=== PATIENT | male | born 1940 | race Caucasian/White ===

== ENCOUNTER 2016-11-22 17:03 | Inpatient (IN) | payer MEDICARE ==
[~2016-11-22] VITALS: Ht 170.2 cm; Wt 81.6 kg
[2016-11-22] MEDS ORDERED: NKM (17:19)
[2016-11-22] MEDS ORDERED: Ampicillin/Sulbactam Sod 3 GM in NS 110 ML IVPB ONE (17:30)
[2016-11-22] MEDS ORDERED: Unasyn 3gm Inj ONE (17:43)
--- NOTE | 2016-11-22 18:18 | Emergency Room Report ---
History of Present Illness General Chief Complaint: Fever Source: Patient, Family Member Present Illness HPI Patient is a 75-year-old male presented after increased fever as well as testicular pain. Patient gradual onset of symptoms were the past few days. Patient having increased left testicular pain and swelling. He denies any recent trauma. He reported urinating normally. Prior history of prostatic hypertrophy. Patient had moderate pain. Associated with temperature of 102. He denied any dysuria or hesitancy with urination Allergies: Coded Allergies: No Known Allergies (Unverified , 11/22/16) Patient History Past Medical History: see triage record Reviewed Nursing Documentation: PMH: Agreed, PSxH: Agreed Nursing Documentation-PMH Hx Hypertension: Yes Review of Systems All Other Systems: negative except mentioned in HPI Physical Exam Vital Signs Date Time Temp Pulse Resp B/P Pulse Ox O2 Delivery O2 Flow Rate FiO2 11/22/16 17:11 101.8 119 20 126/83 95 Room Air Sp02 EP Interpretation: reviewed, normal General Appearance: normal inspection, well appearing, no apparent distress, alert, non-toxic Head: atraumatic ENT: normal ENT inspection, hearing grossly normal, normal voice Neck: normal inspection, full range of motion, supple, no bony tend Respiratory: normal inspection, lungs clear, normal breath sounds, no respiratory distress, no retraction, no wheezing Cardiovascular #1: regular rate, rhythm, no edema Gastrointestinal: normal inspection, normal bowel sounds, non tender, soft, no guarding, no hernia Genitourinary: no CVA tenderness, other - testicular swelling left scrotal skin normal Musculoskeletal: normal inspection, back normal, normal range of motion Neurologic: normal inspection, alert, responsive, speech normal Psychiatric: normal inspection, judgement/insight normal, mood/affect normal Skin: normal inspection, normal color, no rash Medical Decision Making Diagnostic Impression: Primary Impression: Fever Additional Impressions: Epididymo-orchitis, acute Leukocytosis Diverticular disease ER Course Patient presented for testicular pain. Differential diagnosis included was not limited to torsion, epididymitis, orchitis, prostatitis, renal stone, fourniere' s gangrene among others. Because of complexity of patient's case laboratory testing and imaging studies were ordered.CT the head and pelvis read by radiology showed a colonic diverticuli, low attenuation focus in the liver, nodular calcification in the left lower quadrant mesentery. Urinary bladder wall thickening. The patient started on IV antibiotics. Patient was discussed with Dr. Elfego Bansal for inpatient management Labs Test 11/22/16 17:55 11/22/16 19:20 White Blood Count 24.8 K/UL (4.8-10.8) Red Blood Count 5.26 M/UL (4.70-6.10) Hemoglobin 16.9 G/DL (14.2-18.0) Hematocrit 48.2 % (42.0-52.0) Mean Corpuscular Volume 92 FL (80-99) Mean Corpuscular Hemoglobin 32.2 PG (27.0-31.0) Mean Corpuscular Hemoglobin Concent 35.2 G/DL (32.0-36.0) Red Cell Distribution Width 12.4 % (11.6-14.8) Platelet Count 249 K/UL (150-450) Mean Platelet Volume 6.5 FL (6.5-10.1) Neutrophils (%) (Auto) % (45.0-75.0) Lymphocytes (%) (Auto) % (20.0-45.0) Monocytes (%) (Auto) % (1.0-10.0) Eosinophils (%) (Auto) % (0.0-3.0) Basophils (%) (Auto) % (0.0-2.0) Differential Total Cells Counted 100 Neutrophils % (Manual) 90 % (45-75) Lymphocytes % (Manual) 3 % (20-45) Monocytes % (Manual) 6 % (1-10) Eosinophils % (Manual) 0 % (0-3) Basophils % (Manual) 0 % (0-2) Band Neutrophils 1 % (0-8) Platelet Estimate Adequate Platelet Morphology Normal Red Blood Cell Morphology Normal Prothrombin Time 12.3 SEC (9.30-11.50) Prothromb Time International Ratio 1.2 (0.9-1.1) Activated Partial Thromboplast Time 34 SEC (23-33) Sodium Level 133 mEQ/L (135-145) Potassium Level 3.7 mEQ/L (3.4-4.9) Chloride Level 93 mEQ/L (98-107) Carbon Dioxide Level 20 mEQ/L (20-30) Anion Gap 20 (5-15) Blood Urea Nitrogen 14 mg/dL (7-23) Creatinine 0.8 mg/dL (0.7-1.2) Estimat Glomerular Filtration Rate mL/min (>60) Glucose Level 150 mg/dL (74-106) Lactic Acid Level 1.40 mmol/L (0.66-2.22) Calcium Level 9.3 mg/dL (8.6-10.2) Total Bilirubin 0.7 mg/dL (0.0-1.2) Aspartate Amino Transf (AST/SGOT) 23 U/L (5-40) Alanine Aminotransferase (ALT/SGPT) 17 U/L (3-41) Alkaline Phosphatase 94 U/L (40-129) Total Protein 7.0 g/dL (6.6-8.7) Albumin 4.2 g/dL (3.5-5.2) Globulin 2.8 g/dL Albumin/Globulin Ratio 1.5 (1.0-2.7) Lipase 26 U/L (< 60) Urine Color Pale yellow Urine Appearance Clear Urine pH 6 (4.5-8.0) Urine Specific [place] 1.015 (1.005-1.035) Urine Protein 2+ (NEGATIVE) Urine Glucose (UA) Negative (NEGATIVE) Urine Ketones 4+ (NEGATIVE) Urine Occult Blood 3+ (NEGATIVE) Urine Nitrite Negative (NEGATIVE) Urine Bilirubin Negative (NEGATIVE) Urine Urobilinogen Normal MG/DL (0.0-1.0) Urine Leukocyte Esterase Negative (NEGATIVE) Urine RBC 5-10 /HPF (0 - 0) Urine WBC 0-2 /HPF (0 - 0) Urine Squamous Epithelial Cells None /LPF (NONE/OCC) Urine Bacteria Few /HPF (NONE) Last Vital Signs Date Time Temp Pulse Resp B/P Pulse Ox O2 Delivery O2 Flow Rate FiO2 11/22/16 17:11 101.8 119 20 126/83 95 Room Air Status: unchanged Disposition: ADMITTED INPATIENT Condition: Blaise Rebollar November 22, 2016 18:18
[2016-11-22 18:42] LABS: MEAN CORPUSCULAR HEMOGLOBIN 32.2 PG (27.0-31.0); MEAN CORPUSCULAR HGB CONC 35.2 G/DL (32.0-36.0); MEAN CORPUSCULAR VOLUME 92 FL (80-99); MEAN PLATELET VOLUME 6.5 FL (6.5-10.1); PLATELET COUNT 249 K/UL (150-450); RED BLOOD COUNT 5.26 M/UL (4.70-6.10); RED CELL DISTRIBUTION WIDTH 12.4 % (11.6-14.8)
[2016-11-22 18:46] LABS: INR 1.2 (0.9-1.1); PROTHROMBIN TIME 12.3 SEC (9.30-11.50)
[2016-11-22 18:49] LABS: WHITE BLOOD COUNT 24.8 K/UL (4.8-10.8)
[2016-11-22 19:00] LABS: ALANINE AMINOTRANSFERASE 17 U/L (3-41); ALBUMIN/GLOBULIN RATIO 1.5 (1.0-2.7); ANION GAP 20 (5-15); ASPARTATE AMINO TRANSFERASE 23 U/L (5-40); CALCIUM 9.3 mg/dL (8.6-10.2); CARBON DIOXIDE 20 mEQ/L (20-30); CHLORIDE 93 mEQ/L (98-107); CREATININE 0.8 mg/dL (0.7-1.2); HEMOLYSIS 21; LIPASE 26 U/L (< 60); POTASSIUM 3.7 mEQ/L (3.4-4.9); SODIUM 133 mEQ/L (135-145)
[2016-11-22 19:37] LABS: APPEARANCE,URINE CLEAR; KETONES,URINE 4+ (NEGATIVE); LEUKOCYTE ESTERASE ,URINE NEGATIVE (NEGATIVE); NITRITE,URINE NEGATIVE (NEGATIVE); PH,URINE 6 (4.5-8.0); PROTEIN,URINE 2+ (NEGATIVE); UROBILINOGEN,URINE NORMAL MG/DL (0.0-1.0)
[2016-11-22 19:46] LABS: BACTERIA,URINE FEW /HPF; WBC,URINE 0-2 /HPF (0 - 0)
[2016-11-22] MEDS ORDERED: TAMSULOSIN HCL0.4 MG ORAL (20:46)
[2016-11-22 21:01] VITALS: BP 116/66
[2016-11-22] MEDS ORDERED: Miralax 17gm pkt ORAL PRN (21:45)
[2016-11-22] MEDS ORDERED: DuoNeb 0.5-3(2.5)mg/3ml neb HHN PRN (21:45)
[2016-11-22] MEDS ORDERED: Nitroglycerin Subl 0.4mg tab (Bottle Of 25) SL PRN (21:45)
[2016-11-22 21:46] LABS: BAND NEUTROPHILS % (MANUAL) 1 % (0-8); LYMPHOCYTES % (MANUAL) 3 % (20-45); NEUTROPHILS % (MANUAL) 90 % (45-75); TOTAL CELLS COUNTED 100
[2016-11-22 21:47] LABS: BASOPHILS % (MANUAL) 0 % (0-2); EOSINOPHILS % (MANUAL) 0 % (0-3); PLATELET ESTIMATE ADEQUATE; PLATELET MORPHOLOGY NORMAL
[2016-11-23] VITALS (7 sets, daily range): BP systolic 115–129; BP diastolic 63–74
[2016-11-23] MEDS ORDERED: Vancomycin 1 GM in D5W 275 ML IVPB SCH (01:00)
[2016-11-23 06:47] LABS: MEAN CORPUSCULAR HEMOGLOBIN 29.7 PG (27.0-31.0); MEAN CORPUSCULAR HGB CONC 33.1 G/DL (32.0-36.0); MEAN CORPUSCULAR VOLUME 90 FL (80-99); MEAN PLATELET VOLUME 6.4 FL (6.5-10.1); PLATELET COUNT 224 K/UL (150-450); RED BLOOD COUNT 4.94 M/UL (4.70-6.10); RED CELL DISTRIBUTION WIDTH 12.8 % (11.6-14.8); WHITE BLOOD COUNT 21.1 K/UL (4.8-10.8)
[2016-11-23 07:15] LABS: ALANINE AMINOTRANSFERASE 13 U/L (3-41); ANION GAP 18 (5-15); ASPARTATE AMINO TRANSFERASE 18 U/L (5-40); CALCIUM 9.1 mg/dL (8.6-10.2); CARBON DIOXIDE 23 mEQ/L (20-30); CHLORIDE 96 mEQ/L (98-107); CREATININE 0.8 mg/dL (0.7-1.2); POTASSIUM 3.8 mEQ/L (3.4-4.9); SODIUM 137 mEQ/L (135-145); TOTAL PROTEIN 6.7 g/dL (6.6-8.7)
[2016-11-23 07:16] LABS: HEMOLYSIS 2
[2016-11-23] MEDS: Heparin 5000 units/ml inj SUBQ SCH ×2 (08:49→21:16)
[2016-11-23] MEDS ORDERED: Cefepime HCl 2 GM in D5W 110 ML IV SCH (09:00)
[2016-11-23] MEDS: Morphine Sulfate 2mg/ml Inj IVP PRN ×3 (09:05→17:40)
--- NOTE | 2016-11-23 09:55 | Diagnostic Imaging Report ---
Indication: Abdominal pain Technique: Continuous helical transaxial imaging of the abdomen and pelvis was obtained from the lung bases to the pubic symphysis during intravenous contrast administration. Coronal 2-D reformats were also obtained. Study obtained in a Siemens sensation [address] Total Dose length Product (DLP): [address] Dose Index Volume (CTDIvol): 18, 20 mGy Comparison: None Findings: The lung bases are clear. No abnormalities of the liver, pancreas or spleen are identified. There is no hydronephrosis. Moderate arterial vascular calcifications are present. Gallbladder is unremarkable. Is there is no ascites. Diverticula noted in the colon. Mesenteric dense focus of calcification measuring 1 cm noted anteriorly in the left lower quadrant of the abdomen. Appendix is normal. Prostate is enlarged measuring 8 x 6 x 5.6 cm. No free fluid or free air identified. There is prominence of the scrotal wall which appears thickened. In addition there is serpiginous somewhat enhancing focus of bowel the left testis. This may be a varicocele, but CT is not adequate for evaluation of scrotal pathology. Ultrasound may be obtained for further evaluation as warranted clinically. Impression: Abnormal scrotum. Consider ultrasound for further evaluation. Diverticulosis of the colon. No evidence of diverticulitis. Prostate hypertrophy Atherosclerotic vascular disease The CT scanner at [facility] is accredited by the [employer] and the scans are performed using protocols designed to limit radiation exposure to as low as reasonably achievable to attain images of sufficient resolution adequate for diagnostic evaluation.
[2016-11-23 10:31] LABS: BAND NEUTROPHILS % (MANUAL) 0 % (0-8); BASOPHILS % (MANUAL) 0 % (0-2); EOSINOPHILS % (MANUAL) 0 % (0-3); LYMPHOCYTES % (MANUAL) 3 % (20-45); NEUTROPHILS % (MANUAL) 92 % (45-75); PLATELET ESTIMATE ADEQUATE; PLATELET MORPHOLOGY NORMAL; TOTAL CELLS COUNTED 100
--- NOTE | 2016-11-23 11:20 | Infectious Diseases Prog Note ---
Assessment/Plan Problems: (1) Epididymo-orchitis, acute Assessment & Plan: will start unasyn and doxycycline empiric treatment, send urine culture, and GC&CHLA screening, recommend urology consult (2) Fever Assessment & Plan: due to the above, will send blood and urine culture, continue wide spectrum antibiotics (3) Leukocytosis Assessment & Plan: rule out sepsis . on wide spectrum antibiotics, will send blood culture (4) Testicular discomfort Assessment & Plan: rule out torsion, recommend US and immediate urology evaluation Subjective Allergies: Coded Allergies: No Known Allergies (Unverified , 11/22/16) Objective Vital Signs Last 24 Hour Vital Signs Date Time Temp Pulse Resp B/P Pulse Ox O2 Delivery O2 Flow Rate FiO2 11/23/16 08:00 98.4 90 20 129/63 94 Room Air 11/23/16 04:00 98.2 95 20 115/68 95 Room Air 11/23/16 00:00 96.8 76 18 115/73 94 Room Air 11/22/16 21:47 99.6 72 18 116/66 96 Room Air 11/22/16 21:01 99.6 72 18 116/66 96 Room Air 11/22/16 19:15 99.9 11/22/16 17:11 101.8 119 20 126/83 95 Room Air Height (Feet): 5 Height (Inches): 7.00 Weight (Pounds): 180 Laboratory Tests Test 11/22/16 17:55 11/22/16 19:20 11/23/16 05:55 White Blood Count 24.8 K/UL (4.8-10.8) *H 21.1 K/UL (4.8-10.8) H Red Blood Count 5.26 M/UL (4.70-6.10) 4.94 M/UL (4.70-6.10) Hemoglobin 16.9 G/DL (14.2-18.0) 14.7 G/DL (14.2-18.0) Hematocrit 48.2 % (42.0-52.0) 44.3 % (42.0-52.0) Mean Corpuscular Volume 92 FL (80-99) 90 FL (80-99) Mean Corpuscular Hemoglobin 32.2 PG (27.0-31.0) H 29.7 PG (27.0-31.0) Mean Corpuscular Hemoglobin Concent 35.2 G/DL (32.0-36.0) 33.1 G/DL (32.0-36.0) Red Cell Distribution Width 12.4 % (11.6-14.8) 12.8 % (11.6-14.8) Platelet Count 249 K/UL (150-450) 224 K/UL (150-450) Mean Platelet Volume 6.5 FL (6.5-10.1) 6.4 FL (6.5-10.1) L Neutrophils (%) (Auto) % (45.0-75.0) % (45.0-75.0) Lymphocytes (%) (Auto) % (20.0-45.0) % (20.0-45.0) Monocytes (%) (Auto) % (1.0-10.0) % (1.0-10.0) Eosinophils (%) (Auto) % (0.0-3.0) % (0.0-3.0) Basophils (%) (Auto) % (0.0-2.0) % (0.0-2.0) Differential Total Cells Counted 100 100 Neutrophils % (Manual) 90 % (45-75) H 92 % (45-75) H Lymphocytes % (Manual) 3 % (20-45) L 3 % (20-45) L Monocytes % (Manual) 6 % (1-10) 5 % (1-10) Eosinophils % (Manual) 0 % (0-3) 0 % (0-3) Basophils % (Manual) 0 % (0-2) 0 % (0-2) Band Neutrophils 1 % (0-8) 0 % (0-8) Platelet Estimate Adequate Adequate Platelet Morphology Normal Normal Red Blood Cell Morphology Normal Normal Prothrombin Time 12.3 SEC (9.30-11.50) H Prothromb Time International Ratio 1.2 (0.9-1.1) H Activated Partial Thromboplast Time 34 SEC (23-33) H Sodium Level 133 mEQ/L (135-145) L 137 mEQ/L (135-145) Potassium Level 3.7 mEQ/L (3.4-4.9) 3.8 mEQ/L (3.4-4.9) Chloride Level 93 mEQ/L (98-107) L 96 mEQ/L (98-107) L Carbon Dioxide Level 20 mEQ/L (20-30) 23 mEQ/L (20-30) Anion Gap 20 (5-15) H 18 (5-15) H Blood Urea Nitrogen 14 mg/dL (7-23) 15 mg/dL (7-23) Creatinine 0.8 mg/dL (0.7-1.2) 0.8 mg/dL (0.7-1.2) Estimat Glomerular Filtration Rate mL/min (>60) mL/min (>60) Glucose Level 150 mg/dL (74-106) H 143 mg/dL (74-106) H Lactic Acid Level 1.40 mmol/L (0.66-2.22) Calcium Level 9.3 mg/dL (8.6-10.2) 9.1 mg/dL (8.6-10.2) Total Bilirubin 0.7 mg/dL (0.0-1.2) 0.5 mg/dL (0.0-1.2) Aspartate Amino Transf (AST/SGOT) 23 U/L (5-40) 18 U/L (5-40) Alanine Aminotransferase (ALT/SGPT) 17 U/L (3-41) 13 U/L (3-41) Alkaline Phosphatase 94 U/L (40-129) 84 U/L (40-129) Total Protein 7.0 g/dL (6.6-8.7) 6.7 g/dL (6.6-8.7) Albumin 4.2 g/dL (3.5-5.2) 3.4 g/dL (3.5-5.2) L Globulin 2.8 g/dL 3.3 g/dL Albumin/Globulin Ratio 1.5 (1.0-2.7) 1.0 (1.0-2.7) Lipase 26 U/L (< 60) Urine Color Pale yellow Urine Appearance Clear Urine pH 6 (4.5-8.0) Urine Specific [place] 1.015 (1.005-1.035) Urine Protein 2+ (NEGATIVE) H Urine Glucose (UA) Negative (NEGATIVE) Urine Ketones 4+ (NEGATIVE) H Urine Occult Blood 3+ (NEGATIVE) H Urine Nitrite Negative (NEGATIVE) Urine Bilirubin Negative (NEGATIVE) Urine Urobilinogen Normal MG/DL (0.0-1.0) Urine Leukocyte Esterase Negative (NEGATIVE) Urine RBC 5-10 /HPF (0 - 0) H Urine WBC 0-2 /HPF (0 - 0) Urine Squamous Epithelial Cells None /LPF (NONE/OCC) Urine Bacteria Few /HPF (NONE) Current Medications Medications (Trade) Dose Ordered Sig/Alivia Route PRN Reason Start Time Stop Time Status Last Admin Dose Admin Acetaminophen (Tylenol) 650 mg Q4H PRN ORAL fever 11/22/16 21:45 12/22/16 21:44 Albuterol/ Ipratropium 3 ml 3 ml EVERY 4 HOURS PRN HHN Shortness of Breath 11/22/16 21:45 11/27/16 21:44 Cefepime HCl 2 gm/ Dextrose 110 ml @ 220 mls/hr EVERY 12 HOURS IV 11/23/16 09:00 11/30/16 08:59 11/23/16 08:49 Heparin Sodium (Porcine) (Heparin 5000 units/ml) 5,000 units EVERY 12 HOURS SUBQ 11/23/16 09:00 12/23/16 08:59 11/23/16 08:49 Morphine Sulfate (Morphine Sulfate) 2 mg EVERY 4 HOURS PRN IVP Moderate Pain (Pain Scale 4-6) 11/22/16 21:45 11/29/16 21:44 11/23/16 09:05 Nitroglycerin (Ntg) 0.4 mg Q5MINS PRN SL Prn Chest Pain 11/22/16 21:45 12/22/16 21:44 Ondansetron HCl (Zofran) 4 mg Q6H PRN IVP Nausea & Vomiting 11/22/16 21:45 12/22/16 21:44 Polyethylene Glycol (Miralax) 17 gm DAILYPRN PRN ORAL Constipation 11/22/16 21:45 12/22/16 21:44 Tamsulosin HCl (Flomax) 0.4 mg BEDTIME ORAL 11/23/16 21:00 12/23/16 20:59 Temazepam (Restoril) 15 mg HSPRN PRN ORAL Insomnia 11/22/16 21:45 11/29/16 21:44 Vancomycin HCl/ Dextrose (Vancomycin/D5W) 275 ml @ 183.3 mls/ hr Q24H IVPB 11/23/16 01:00 11/28/16 00:59 11/23/16 00:29 Jennifer Herr M.D. November 23, 2016 11:20
--- NOTE | 2016-11-23 12:12 | Diagnostic Imaging Report ---
Indication: Dyspnea Comparison: None A single view chest radiograph was obtained. Findings: Cardiomediastinal appearance is within normal limits for age. Pulmonary vascularity is appropriate. The diaphragmatic contour is smooth and costophrenic angles are sharp. No pleural effusions are identified. The bones are osteopenic. Impression: No acute findings
[2016-11-23] MEDS: Ampicillin/Sulbactam Sod 3 GM in NS 110 ML IVPB SCH ×3 (14:15→23:47)
[2016-11-23] MEDS: Doxycycline Hyclate 100 MG in D5W 110 ML IV SCH (15:06)
[2016-11-23] MEDS ORDERED: NS 275ml ONE (16:09)
[2016-11-23] MEDS ORDERED: Tubing IV Secondary IV ONE (16:09)
--- NOTE | 2016-11-23 20:38 | History and Physical Report ---
DATE OF ADMISSION: 11/22/2016 TIME: 8 a.m. CONSULTANTS: 1. Jennifer Herr M.D. 2. Ian Panchal M.D. 3. Michael Mallory M.D. CHIEF COMPLAINT: Fever, sepsis, testicular pain, and orchitis. HISTORY OF PRESENT ILLNESS: This is a 75-year-old male who lives at home and presents with a three-day increase of testicular swelling and pain, diagnosed with orchitis and testicular pain, fever, and sepsis, admitted to medical floor for treatment. Currently calm, in bed. No complaint. No chest pain or shortness of breath. No nausea, vomiting, or diarrhea. PAST MEDICAL HISTORY: Nothing. PAST SURGICAL HISTORY: Nothing. MEDICATIONS: 1. Flomax. 2. Cefepime. 3. Heparin. 4. Vancomycin. 5. DuoNeb. 6. Tylenol. 7. Morphine. 8. MiraLax. 9. Zofran. 10. Restoril. 11. Nitroglycerin. ALLERGIES: None. SOCIAL HISTORY: No smoking. No alcohol. No intravenous drug abuse. FAMILY HISTORY: Noncontributory. PHYSICAL EXAMINATION: General: Calm in bed. Oriented x3, in no acute distress. VITAL SIGNS: Temperature 98, pulse 95, respiratory rate 24, and blood pressure 115/68. CARDIOVASCULAR: No murmur. LUNGS: Distant and clear. ABDOMEN: Positive bowel sounds. Nontender. Nondistended. EXTREMITIES: No cyanosis, clubbing, or edema. Scrotal swelling, slightly tender. No redness. No increased warmth. NEUROLOGIC: The patient moves all extremities, slightly weak left hand. LABORATORY DATA: White count 21, hemoglobin and hematocrit 14 and 44, and platelets 224,000. BMP shows chloride of 96. Glucose 143, otherwise normal. INR is 1.2. PTT is 34. Urinalysis showed 3+ occult blood, 4+ ketones, and 2+ protein, otherwise normal. ASSESSMENT: 1. Fever. 2. Sepsis. 3. Testicular cancer. 4. Orchitis . 5. Possible diabetes. PLAN: 1. Continue premedications. 2. Pain control. 3. Blood sugar control. 4. Diet . 5. Antibiotics per Infectious Diseases. 6. CBC and BMP in the morning. 7. Continue to follow up this patient medically. 8. Dr. Mallory, Dr. Herr, and Dr. Panchal to consult. Elfego Bansal D.O. DR: ORA JOB#: [id number] CC:
[2016-11-23] MEDS: Tamsulosin 0.4mg cap ORAL SCH (21:16)
--- NOTE | 2016-11-23 22:55 | Consultation ---
History of Present Illness General Chief Complaint: Fever Present Illness Allergies: Coded Allergies: No Known Allergies (Unverified , 11/22/16) Medication History Scheduled Tamsulosin Hcl (Tamsulosin Hcl*), 0.4 MG ORAL BEDTIME, (Reported) Patient History Healthcare decision maker Resuscitation status Full Code Advanced Directive on File No Physical Exam Last 24 Hour Vital Signs Date Time Temp Pulse Resp B/P Pulse Ox O2 Delivery O2 Flow Rate FiO2 11/23/16 19:54 98.6 93 20 120/71 93 Room Air 11/23/16 16:09 100.0 97 18 117/74 92 Room Air 11/23/16 12:00 98.1 90 20 119/68 95 Room Air 11/23/16 08:00 98.4 90 20 129/63 94 Room Air 11/23/16 04:00 98.2 95 20 115/68 95 Room Air 11/23/16 00:00 96.8 76 18 115/73 94 Room Air Intake and Output 11/22/16 11/23/16 19:00 07:00 Intake Total 835.0 ml Balance 835.0 ml Intake Oral 560 ml IV Total 275.0 ml # Voids 2 # Bowel Movements 6 Laboratory Tests Test 11/23/16 05:55 11/23/16 16:00 White Blood Count 21.1 K/UL (4.8-10.8) H Red Blood Count 4.94 M/UL (4.70-6.10) Hemoglobin 14.7 G/DL (14.2-18.0) Hematocrit 44.3 % (42.0-52.0) Mean Corpuscular Volume 90 FL (80-99) Mean Corpuscular Hemoglobin 29.7 PG (27.0-31.0) Mean Corpuscular Hemoglobin Concent 33.1 G/DL (32.0-36.0) Red Cell Distribution Width 12.8 % (11.6-14.8) Platelet Count 224 K/UL (150-450) Mean Platelet Volume 6.4 FL (6.5-10.1) L Neutrophils (%) (Auto) % (45.0-75.0) Lymphocytes (%) (Auto) % (20.0-45.0) Monocytes (%) (Auto) % (1.0-10.0) Eosinophils (%) (Auto) % (0.0-3.0) Basophils (%) (Auto) % (0.0-2.0) Differential Total Cells Counted 100 Neutrophils % (Manual) 92 % (45-75) H Lymphocytes % (Manual) 3 % (20-45) L Monocytes % (Manual) 5 % (1-10) Eosinophils % (Manual) 0 % (0-3) Basophils % (Manual) 0 % (0-2) Band Neutrophils 0 % (0-8) Platelet Estimate Adequate Platelet Morphology Normal Red Blood Cell Morphology Normal Sodium Level 137 mEQ/L (135-145) Potassium Level 3.8 mEQ/L (3.4-4.9) Chloride Level 96 mEQ/L (98-107) L Carbon Dioxide Level 23 mEQ/L (20-30) Anion Gap 18 (5-15) H Blood Urea Nitrogen 15 mg/dL (7-23) Creatinine 0.8 mg/dL (0.7-1.2) Estimat Glomerular Filtration Rate mL/min (>60) Glucose Level 143 mg/dL (74-106) H Calcium Level 9.1 mg/dL (8.6-10.2) Total Bilirubin 0.5 mg/dL (0.0-1.2) Aspartate Amino Transf (AST/SGOT) 18 U/L (5-40) Alanine Aminotransferase (ALT/SGPT) 13 U/L (3-41) Alkaline Phosphatase 84 U/L (40-129) Total Protein 6.7 g/dL (6.6-8.7) Albumin 3.4 g/dL (3.5-5.2) L Globulin 3.3 g/dL Albumin/Globulin Ratio 1.0 (1.0-2.7) Chlamydia trachomatis RNA Pending Height (Feet): 5 Height (Inches): 7.00 Weight (Pounds): 180 Medications Current Medications Medications (Trade) Dose Ordered Sig/Alivia Route PRN Reason Start Time Stop Time Status Last Admin Dose Admin Acetaminophen (Tylenol) 650 mg Q4H PRN ORAL fever 11/22/16 21:45 12/22/16 21:44 11/23/16 17:43 Albuterol/ Ipratropium (DuoNeb 0.5-3(2.5)mg/3ml) 3 ml EVERY 4 HOURS PRN HHN Shortness of Breath 11/22/16 21:45 11/27/16 21:44 Ampicillin Sodium/ Sulbactam Sodium 3 gm/Sodium Chloride 110 ml @ 220 mls/hr Q6HR IVPB 11/23/16 12:00 11/30/16 11:59 11/23/16 17:40 Cetylpyridinium Chloride (Cepacol) 1 lozenge Q2H PRN ANA SORE THROAT 11/23/16 15:00 12/23/16 14:59 11/23/16 17:43 Doxycycline Hyclate/Dextrose (Vibramycin/D5W) 110 ml @ 110 mls/hr Q12HR@0000,1200 IV 11/23/16 13:00 11/30/16 12:59 11/23/16 15:06 Heparin Sodium (Porcine) (Heparin 5000 units/ml) 5,000 units EVERY 12 HOURS SUBQ 11/23/16 09:00 12/23/16 08:59 11/23/16 21:16 Morphine Sulfate (Morphine Sulfate) 2 mg EVERY 4 HOURS PRN IVP Moderate Pain (Pain Scale 4-6) 11/22/16 21:45 11/29/16 21:44 11/23/16 17:40 Nitroglycerin 0.4 mg 0.4 mg Q5MINS PRN SL Prn Chest Pain 11/22/16 21:45 12/22/16 21:44 Ondansetron HCl (Zofran) 4 mg Q6H PRN IVP Nausea & Vomiting 11/22/16 21:45 12/22/16 21:44 Polyethylene Glycol (Miralax) 17 gm DAILYPRN PRN ORAL Constipation 11/22/16 21:45 12/22/16 21:44 Tamsulosin HCl (Flomax) 0.4 mg BEDTIME ORAL 11/23/16 21:00 12/23/16 20:59 11/23/16 21:16 Temazepam (Restoril) 15 mg HSPRN PRN ORAL Insomnia 11/22/16 21:45 11/29/16 21:44 KELVIN MEJÍA November 23, 2016 22:55
[2016-11-24] MEDS: Doxycycline Hyclate 100 MG in D5W 110 ML IV SCH ×3 (00:30→23:47)
[2016-11-24 04:37] VITALS: BP 132/76
[2016-11-24] MEDS: Ampicillin/Sulbactam Sod 3 GM in NS 110 ML IVPB SCH ×4 (05:20→23:01)
[2016-11-24 07:56] LABS: MEAN CORPUSCULAR HEMOGLOBIN 29.6 PG (27.0-31.0); MEAN CORPUSCULAR HGB CONC 32.7 G/DL (32.0-36.0); MEAN CORPUSCULAR VOLUME 91 FL (80-99); MEAN PLATELET VOLUME 6.8 FL (6.5-10.1); PLATELET COUNT 232 K/UL (150-450); RED BLOOD COUNT 4.74 M/UL (4.70-6.10); RED CELL DISTRIBUTION WIDTH 12.6 % (11.6-14.8); WHITE BLOOD COUNT 16.4 K/UL (4.8-10.8)
[2016-11-24 08:05] LABS: ANION GAP 13 (5-15); CALCIUM 8.7 mg/dL (8.6-10.2); CARBON DIOXIDE 27 mEQ/L (20-30); CHLORIDE 97 mEQ/L (98-107); CREATININE 0.8 mg/dL (0.7-1.2); HEMOLYSIS 1; POTASSIUM 3.5 mEQ/L (3.4-4.9); SODIUM 137 mEQ/L (135-145)
[2016-11-24 08:11] VITALS: BP 114/73
[2016-11-24] MEDS: Morphine Sulfate 2mg/ml Inj IVP PRN ×2 (09:06→17:37)
[2016-11-24] MEDS: Heparin 5000 units/ml inj SUBQ SCH ×2 (09:10→20:37)
--- NOTE | 2016-11-24 09:35 | Diagnostic Imaging Report ---
Indications: Left-sided scrotal pain and swelling for one day Technique: Trans-scrotal real-time grayscale and duplex Doppler imaging was performed Findings: Comparison: None Right testis 4 x 3.1 x 3 cm. Normal contour and echotexture without focal abnormality. Right epididymis normal in size and echotexture with a 6 mm circumscribed anechoic focus emanating exophytically. Both demonstrate normal blood flow on duplex Doppler imaging. Small amount of adjacent fluid. No varicocele. No significant scrotal wall edema/hyperemia. Left testis 4.3 x 3.3 x 3.4 cm. Normal contour and echotexture with single 10 mm nodular echogenic focus in upper pole. Left epididymis mildly enlarged, contains 12 mm circumscribed anechoic focus.. Both demonstrate reportedly mildly increased blood flow on duplex Doppler imaging. Moderateadjacent fluid. Small varicocele. No significant scrotal wall edema/upper IMPRESSION: Mild enlargement of left testis and epididymis with report by television technician of increased blood flow, suggesting epididymoorchitis. Associated hydrocele. Suggestion of small left varicocele Small right hydrocele, nonspecific Bilateral epididymal cysts
--- NOTE | 2016-11-24 09:59 | Consultation ---
DATE OF CONSULTATION: 11/23/2016 UROLOGY CONSULTATION ATTENDING/CONSULTING PHYSICIAN: Ian Panchal M.D. CHIEF COMPLAINT AND HISTORY OF PRESENT ILLNESS: I was asked by Dr. Panchal to evaluate this very pleasant 75-year-old gentleman regarding a history of left scrotal swelling and pain in the setting of likely infection. Briefly, the patient reports a history of testicular pain and swelling developing two days ago. This is associated with fevers up to 102.0 degrees, who presents to the emergency room where he was noted to have the same. He was admitted and placed on broad-spectrum antibiotics. A CT scan failed to reveal any evidence of torsion, hernia etc. A scrotal ultrasound was done, the result is pending. PAST MEDICAL HISTORY: 1. Hypertension. 2. BPH. MEDICATIONS: Please see chart for current medications administration details. Briefly, the patient is receiving cefepime and Unasyn for antibiotic coverage. ALLERGIES: No known drug allergies. SOCIAL HISTORY: Unremarkable for tobacco, alcohol or drug use. FAMILY HISTORY: Noncontributory. REVIEW OF SYSTEMS: A 12-system review of systems was done at bedside and essentially unremarkable outside was described above. PHYSICAL EXAMINATION: GENERAL: The patient is a older gentleman, awake, alert and oriented x4, pleasant in no obvious distress. HEENT: NC/AT. EOMI. Oropharynx is clear. NECK: Supple. Full range of motion. CHEST: Within normal limits. ABDOMEN: Soft, flat, nontender, and nondistended. EXTREMITIES: Normal perfused. No cyanosis, clubbing or edema. BACK: No CVA tenderness to percussion. NEUROLOGIC: Nonfocal. GENITOURINARY: Reveals a circumcised male phallus. No discharge, lesions or curvature. There are bilateral descended testes and cord structures. The right side is within normal limits. Left side is enlarged and mildly tender consistent with a history of epididymal orchitis. There is no evidence of hydrocele, hernia, testicular tumor, torsion or other abnormality. LABORATORY DATA: White blood cell count 21.1, down from 24.8 on admission, hematocrit 44.3, and platelets 244,000. DIAGNOSTIC IMAGING: CT scan of the abdomen and pelvis reveals prominence of scrotal wall which appears thickened in addition there may be serpiginous and somewhat enhancing focus about a left testicle this may be a varicocele, but CT scan is not adequate for evaluation of pseudo pathology suggest ultrasound for further evaluation. There is prostatic hypertrophy and diverticulosis noted. ASSESSMENT AND PLAN: In summary, the patient is a 75-year-old gentleman with a history of benign prostatic hypertrophy, who presents to the hospital with a 2-day history of left scrotal pain and swelling associated with high-grade fever. Physical exam reveals an enlarged testicle, which is tender, but decreased in sensitivity versus prior exam per the patient. There is no evidence of hydrocele, tumor, hernia torsion or other abnormality. Laboratory data was notable for elevated but decreasing white blood cell count. Diagnostic imaging on CT scan revealed a thickened scrotum and nonspecific findings. Scrotal ultrasound has been done, but the read is pending. The patient appears to be suffering from an episode of epididymal orchitis. He is already improving on intravenous antibiotics. Physical exam did not reveal any evidence of any other pathology. If the ultrasound shows similar findings, we would recommend continue the patient on intravenous or p.o. antibiotics for 14 days total coverage once he is afebrile and his pain is controlled he can be discharged home to complete oral antibiotics. Thank you for allowing me to participate in the care of this nice gentleman. Please do not hesitate to contact me with any questions that you may further have regarding his care. I will be happy to see him with you as needed. Sabino Jenkins M.D. DR: Bonita JOB#: [id number] CC:
[2016-11-24 10:29] LABS: BAND NEUTROPHILS % (MANUAL) 0 % (0-8); BASOPHILS % (MANUAL) 0 % (0-2); EOSINOPHILS % (MANUAL) 0 % (0-3); LYMPHOCYTES % (MANUAL) 11 % (20-45); NEUTROPHILS % (MANUAL) 83 % (45-75); PLATELET ESTIMATE ADEQUATE; PLATELET MORPHOLOGY NORMAL; TOTAL CELLS COUNTED 100
[2016-11-24 11:54] VITALS: BP 106/74
--- NOTE | 2016-11-24 14:19 | General Progress Note ---
Assessment/Plan Problem List: (1) Orchitis ICD Codes: N45.2 - Orchitis SNOMED: 306492074, 120360696 (2) Fever ICD Codes: R50.9 - Fever, unspecified SNOMED: 253694094 (3) Leukocytosis ICD Codes: D72.829 - Elevated white blood cell count, unspecified SNOMED: 153677124, 052125553 (4) Epididymo-orchitis, acute ICD Codes: N45.3 - Epididymo-orchitis SNOMED: 040897123 (5) Testicular discomfort ICD Codes: N50.819 - Testicular pain, unspecified SNOMED: 727188327 Status: stable, progressing, tolerating diet Assessment/Plan pt diet abx pain control uro f/u cbc bmp am Subjective Constitutional: Reports: weakness Allergies: Coded Allergies: No Known Allergies (Unverified , 11/22/16) All Systems: reviewed and negative except above Subjective sl testicular pain Objective Last 24 Hour Vital Signs Date Time Temp Pulse Resp B/P Pulse Ox O2 Delivery O2 Flow Rate FiO2 11/24/16 11:54 97.5 74 18 106/74 97 Room Air 11/24/16 08:11 97.5 80 18 114/73 94 Room Air 11/24/16 04:37 98.1 85 17 132/76 96 Room Air 11/23/16 23:53 97.0 69 16 116/74 Room Air 11/23/16 19:54 98.6 93 20 120/71 93 Room Air 11/23/16 16:09 100.0 97 18 117/74 92 Room Air Intake and Output 11/23/16 11/24/16 19:00 07:00 Intake Total 1160 ml 330 ml Balance 1160 ml 330 ml Intake Oral 720 ml IV Total 440 ml 330 ml # Voids 3 3 # Bowel Movements 1 Laboratory Tests 11/23/16 16:00: Chlamydia trachomatis RNA [Pending] 11/24/16 06:15: White Blood Count 16.4H, Red Blood Count 4.74, Hemoglobin 14.0L, Hematocrit 43.0 , Mean Corpuscular Volume 91, Mean Corpuscular Hemoglobin 29.6, Mean Corpuscular Hemoglobin Concent 32.7, Red Cell Distribution Width 12.6, Platelet Count 232, Mean Platelet Volume 6.8, Neutrophils (%) (Auto) , Lymphocytes (%) ( Auto) , Monocytes (%) (Auto) , Eosinophils (%) (Auto) , Basophils (%) (Auto) , Differential Total Cells Counted 100, Neutrophils % (Manual) 83H, Lymphocytes % (Manual) 11L, Monocytes % (Manual) 6, Eosinophils % (Manual) 0, Basophils % ( Manual) 0, Band Neutrophils 0, Platelet Estimate Adequate, Platelet Morphology Normal, Red Blood Cell Morphology Normal, Sodium Level 137, Potassium Level 3.5 , Chloride Level 97L, Carbon Dioxide Level 27, Anion Gap 13, Blood Urea Nitrogen 14, Creatinine 0.8, Estimat Glomerular Filtration Rate , Glucose Level 114H, Calcium Level 8.7 Height (Feet): 5 Height (Inches): 7.00 Weight (Pounds): 180 General Appearance: alert EENT: normal ENT inspection Neck: normal alignment Cardiovascular: normal peripheral pulses, normal rate, regular rhythm Respiratory/Chest: chest wall non-tender, lungs clear, normal breath sounds Abdomen: normal bowel sounds, non tender, soft Extremities: normal inspection Edema: no edema noted Arm (L), no edema noted Arm (R), no edema noted Leg (L), no edema noted Leg (R), no edema noted Pedal (L), no edema noted Pedal (R), no edema noted Generalized Neurologic: responsive, motor weakness Skin: normal pigmentation, warm/dry Objective testicular swelling 4" by 4" BROOKLYN CHAIDEZ November 24, 2016 14:19
[2016-11-24 15:59] VITALS: BP 113/72
--- NOTE | 2016-11-24 15:59 | Infectious Diseases Prog Note ---
Assessment/Plan Problems: (1) Epididymo-orchitis, acute Assessment & Plan: will start unasyn and doxycycline empiric treatment, send urine culture, and GC&CHLA screening, recommend urology consult (2) Fever Assessment & Plan: due to the above, will send blood and urine culture, continue wide spectrum antibiotics (3) Leukocytosis Assessment & Plan: rule out sepsis . on wide spectrum antibiotics, will send blood culture (4) Testicular discomfort Assessment & Plan: rule out torsion, recommend US and immediate urology evaluation Subjective Allergies: Coded Allergies: No Known Allergies (Unverified , 11/22/16) Objective Vital Signs Last 24 Hour Vital Signs Date Time Temp Pulse Resp B/P Pulse Ox O2 Delivery O2 Flow Rate FiO2 11/24/16 11:54 97.5 74 18 106/74 97 Room Air 11/24/16 08:11 97.5 80 18 114/73 94 Room Air 11/24/16 04:37 98.1 85 17 132/76 96 Room Air 11/23/16 23:53 97.0 69 16 116/74 Room Air 11/23/16 19:54 98.6 93 20 120/71 93 Room Air 11/23/16 16:09 100.0 97 18 117/74 92 Room Air Height (Feet): 5 Height (Inches): 7.00 Weight (Pounds): 180 Microbiology Date/Time Source Procedure Growth Status 11/22/16 17:55 Blood Blood Culture - Preliminary NO GROWTH AFTER 24 HOURS Resulted 11/22/16 17:10 Blood Blood Culture - Preliminary NO GROWTH AFTER 24 HOURS Resulted Laboratory Tests Test 11/23/16 16:00 11/24/16 06:15 Chlamydia trachomatis RNA Pending White Blood Count 16.4 K/UL (4.8-10.8) H Red Blood Count 4.74 M/UL (4.70-6.10) Hemoglobin 14.0 G/DL (14.2-18.0) L Hematocrit 43.0 % (42.0-52.0) Mean Corpuscular Volume 91 FL (80-99) Mean Corpuscular Hemoglobin 29.6 PG (27.0-31.0) Mean Corpuscular Hemoglobin Concent 32.7 G/DL (32.0-36.0) Red Cell Distribution Width 12.6 % (11.6-14.8) Platelet Count 232 K/UL (150-450) Mean Platelet Volume 6.8 FL (6.5-10.1) Neutrophils (%) (Auto) % (45.0-75.0) Lymphocytes (%) (Auto) % (20.0-45.0) Monocytes (%) (Auto) % (1.0-10.0) Eosinophils (%) (Auto) % (0.0-3.0) Basophils (%) (Auto) % (0.0-2.0) Differential Total Cells Counted 100 Neutrophils % (Manual) 83 % (45-75) H Lymphocytes % (Manual) 11 % (20-45) L Monocytes % (Manual) 6 % (1-10) Eosinophils % (Manual) 0 % (0-3) Basophils % (Manual) 0 % (0-2) Band Neutrophils 0 % (0-8) Platelet Estimate Adequate Platelet Morphology Normal Red Blood Cell Morphology Normal Sodium Level 137 mEQ/L (135-145) Potassium Level 3.5 mEQ/L (3.4-4.9) Chloride Level 97 mEQ/L (98-107) L Carbon Dioxide Level 27 mEQ/L (20-30) Anion Gap 13 (5-15) Blood Urea Nitrogen 14 mg/dL (7-23) Creatinine 0.8 mg/dL (0.7-1.2) Estimat Glomerular Filtration Rate mL/min (>60) Glucose Level 114 mg/dL (74-106) H Calcium Level 8.7 mg/dL (8.6-10.2) Current Medications Medications (Trade) Dose Ordered Sig/Alivia Route PRN Reason Start Time Stop Time Status Last Admin Dose Admin Acetaminophen (Tylenol) 650 mg Q4H PRN ORAL fever 11/22/16 21:45 12/22/16 21:44 11/23/16 17:43 Albuterol/ Ipratropium (DuoNeb 0.5-3(2.5)mg/3ml) 3 ml EVERY 4 HOURS PRN HHN Shortness of Breath 11/22/16 21:45 11/27/16 21:44 Ampicillin Sodium/ Sulbactam Sodium 3 gm/Sodium Chloride 110 ml @ 220 mls/hr Q6HR IVPB 11/23/16 12:00 11/30/16 11:59 11/24/16 11:59 Cetylpyridinium Chloride (Cepacol) 1 lozenge Q2H PRN ANA SORE THROAT 11/23/16 15:00 12/23/16 14:59 11/23/16 17:43 Doxycycline Hyclate/Dextrose (Vibramycin/D5W) 110 ml @ 110 mls/hr Q12HR@0000,1200 IV 11/23/16 13:00 11/30/16 12:59 11/24/16 12:45 Heparin Sodium (Porcine) (Heparin 5000 units/ml) 5,000 units EVERY 12 HOURS SUBQ 11/23/16 09:00 12/23/16 08:59 11/24/16 09:10 Morphine Sulfate (Morphine Sulfate) 2 mg EVERY 4 HOURS PRN IVP Moderate Pain (Pain Scale 4-6) 11/22/16 21:45 11/29/16 21:44 11/24/16 09:06 Nitroglycerin 0.4 mg 0.4 mg Q5MINS PRN SL Prn Chest Pain 11/22/16 21:45 12/22/16 21:44 Ondansetron HCl (Zofran) 4 mg Q6H PRN IVP Nausea & Vomiting 11/22/16 21:45 12/22/16 21:44 Polyethylene Glycol (Miralax) 17 gm DAILYPRN PRN ORAL Constipation 11/22/16 21:45 12/22/16 21:44 Tamsulosin HCl (Flomax) 0.4 mg BEDTIME ORAL 11/23/16 21:00 12/23/16 20:59 11/23/16 21:16 Temazepam (Restoril) 15 mg HSPRN PRN ORAL Insomnia 11/22/16 21:45 11/29/16 21:44 Jennifer Herr M.D. November 24, 2016 15:59
--- NOTE | 2016-11-24 17:29 | Consultation ---
DATE OF CONSULTATION: INFECTIOUS DISEASE CONSULTATION REQUESTING PHYSICIAN: Elfego Bansal D.O. REASON FOR CONSULTATION: Fever, testicular pain, possible orchitis. Recommendation for antibiotics therapy HISTORY OF PRESENT ILLNESS: The patient is a 75-year-old male presented to [facility] with fever and increased swelling in the testicular area. The patient had worsening pain in the left testicle and swelling which has been progressive. Denied any recent trauma. He denies any dysuria or difficulty urinating. He denied any pus from the penis. No previous history of sexually transmitted disease but he had prior history of prostate enlargement. The patient's temperature was found to be 102. The patient was started on empiric antibiotics therapy by the emergency room and I was consulted by the primary provider for antibiotics recommendation and management. REVIEW OF SYSTEMS: Unable to obtain. The patient is poor historian. PAST MEDICAL HISTORY: Hypertension. PAST SURGICAL HISTORY: Unknown. FAMILY HISTORY: Unable to obtain. SOCIAL HISTORY: Unable to obtain. ALLERGIES: He has no known drug allergy. MEDICATIONS: He was started on vancomycin and cefepime by the admitting physician. For the rest of his medications, please refer to MAR. PHYSICAL EXAMINATION: VITAL SIGNS: Temperature 100, pulse 97, respirations 18, blood pressure 117/74, saturation 92% on room air. GENERAL: Elderly male lying in bed, awake, alert, not in acute distress. HEENT: Normocephalic and atraumatic. Pupils are reactive to light. Moist oral mucosa. NECK: Supple. No lymphadenopathy. CARDIOVASCULAR: Regular rate and rhythm. No murmur. LUNGS: Clear bilaterally. No wheezing or rhonchi. ABDOMEN: Soft, nontender, and nondistended. Positive bowel sounds. No organomegaly. EXTREMITIES: No edema or cyanosis. GENITOURINARY: He had left testicular swelling and enlargement with redness on the skin of the scrotum. Unable to appreciate any abscess or hydrocele. LABORATORY AND DIAGNOSTIC DATA: Showed white count of 21.1, hemoglobin 14.7, and platelet count of 224,000. BUN 15, creatinine 0.8. Urinalysis showed negative leukocyte esterase, negative nitrites, few bacteria. Microbiology blood culture x2 negative for 24 hours. Imaging, CT scan of the abdomen and pelvis showed abnormal scrotum. Consider ultrasound for further evaluation. Enlarged prostate measure 8 x 6 x 5.6 cm with prominence of the scrotal wall appeared thickened with enhancing focus of on the left testicle which might be varicocele. Chest x-ray showed no acute finding. ASSESSMENT AND PLAN: 1. Epididymoorchitis, acute presentation. We will switch antibiotics to Unasyn and doxycycline empiric treatment for now. Send urine culture since it was not sent. Await blood culture. We will screen for GC and Chlamydia. Recommend immediate Urology consultation to rule out other possibilities such as testicular torsion or bowel incarceration. 2. Fever with leukocytosis and sepsis due to the above. We will send blood culture and urine culture. Switch antibiotics to Unasyn and doxycycline. Monitor his white count and temperature. Adjust antibiotics as needed. 3. Testicular discomfort with swelling. Differential includes testicular torsion, varicocele, or hydrocele. Recommend immediate ultrasound and Urology evaluation. Discussed with the primary provider and . Jennifer Herr M.D. DR: Deborah JOB#: [id number] CC:
[2016-11-24 19:58] VITALS: BP 111/72
[2016-11-24] MEDS: Tamsulosin 0.4mg cap ORAL SCH (20:30)
--- NOTE | 2016-11-24 22:47 | Pulmonology Progress Note ---
Subjective Allergies: Coded Allergies: No Known Allergies (Unverified , 11/22/16) Objective Last 24 Hour Vital Signs Date Time Temp Pulse Resp B/P Pulse Ox O2 Delivery O2 Flow Rate FiO2 11/24/16 19:58 98.4 76 18 111/72 93 Room Air 11/24/16 15:59 99.5 75 18 113/72 96 Room Air 11/24/16 11:54 97.5 74 18 106/74 97 Room Air 11/24/16 08:11 97.5 80 18 114/73 94 Room Air 11/24/16 04:37 98.1 85 17 132/76 96 Room Air 11/23/16 23:53 97.0 69 16 116/74 Room Air Intake and Output 11/23/16 11/24/16 19:00 07:00 Intake Total 1160 ml 330 ml Balance 1160 ml 330 ml Intake Oral 720 ml IV Total 440 ml 330 ml # Voids 3 3 # Bowel Movements 1 Microbiology Date/Time Source Procedure Growth Status 11/22/16 17:55 Blood Blood Culture - Preliminary NO GROWTH AFTER 24 HOURS Resulted 11/22/16 17:10 Blood Blood Culture - Preliminary NO GROWTH AFTER 24 HOURS Resulted Laboratory Tests 11/24/16 06:15: White Blood Count 16.4H, Red Blood Count 4.74, Hemoglobin 14.0L, Hematocrit 43.0 , Mean Corpuscular Volume 91, Mean Corpuscular Hemoglobin 29.6, Mean Corpuscular Hemoglobin Concent 32.7, Red Cell Distribution Width 12.6, Platelet Count 232, Mean Platelet Volume 6.8, Neutrophils (%) (Auto) , Lymphocytes (%) ( Auto) , Monocytes (%) (Auto) , Eosinophils (%) (Auto) , Basophils (%) (Auto) , Differential Total Cells Counted 100, Neutrophils % (Manual) 83H, Lymphocytes % (Manual) 11L, Monocytes % (Manual) 6, Eosinophils % (Manual) 0, Basophils % ( Manual) 0, Band Neutrophils 0, Platelet Estimate Adequate, Platelet Morphology Normal, Red Blood Cell Morphology Normal, Sodium Level 137, Potassium Level 3.5 , Chloride Level 97L, Carbon Dioxide Level 27, Anion Gap 13, Blood Urea Nitrogen 14, Creatinine 0.8, Estimat Glomerular Filtration Rate , Glucose Level 114H, Calcium Level 8.7 Current Medications Medications (Trade) Dose Ordered Sig/Alivia Route PRN Reason Start Time Stop Time Status Last Admin Dose Admin Acetaminophen (Tylenol) 650 mg Q4H PRN ORAL fever 11/22/16 21:45 12/22/16 21:44 11/23/16 17:43 Albuterol/ Ipratropium (DuoNeb 0.5-3(2.5)mg/3ml) 3 ml EVERY 4 HOURS PRN HHN Shortness of Breath 11/22/16 21:45 11/27/16 21:44 Ampicillin Sodium/ Sulbactam Sodium 3 gm/Sodium Chloride 110 ml @ 220 mls/hr Q6HR IVPB 11/23/16 12:00 11/30/16 11:59 11/24/16 17:36 Cetylpyridinium Chloride (Cepacol) 1 lozenge Q2H PRN ANA SORE THROAT 11/23/16 15:00 12/23/16 14:59 11/23/16 17:43 Doxycycline Hyclate/Dextrose (Vibramycin/D5W) 110 ml @ 110 mls/hr Q12HR@0000,1200 IV 11/23/16 13:00 11/30/16 12:59 11/24/16 12:45 Heparin Sodium (Porcine) (Heparin 5000 units/ml) 5,000 units EVERY 12 HOURS SUBQ 11/23/16 09:00 12/23/16 08:59 11/24/16 20:37 Morphine Sulfate (Morphine Sulfate) 2 mg EVERY 4 HOURS PRN IVP Moderate Pain (Pain Scale 4-6) 11/22/16 21:45 11/29/16 21:44 11/24/16 17:37 Nitroglycerin 0.4 mg 0.4 mg Q5MINS PRN SL Prn Chest Pain 11/22/16 21:45 12/22/16 21:44 Ondansetron HCl (Zofran) 4 mg Q6H PRN IVP Nausea & Vomiting 11/22/16 21:45 12/22/16 21:44 Polyethylene Glycol (Miralax) 17 gm DAILYPRN PRN ORAL Constipation 11/22/16 21:45 12/22/16 21:44 Tamsulosin HCl (Flomax) 0.4 mg BEDTIME ORAL 11/23/16 21:00 12/23/16 20:59 11/24/16 20:30 Temazepam (Restoril) 15 mg HSPRN PRN ORAL Insomnia 11/22/16 21:45 11/29/16 21:44 KELVIN MEJÍA November 24, 2016 22:47
[2016-11-24 23:47] VITALS: BP 112/71
[2016-11-25] MEDS: Morphine Sulfate 2mg/ml Inj IVP PRN (03:31)
[2016-11-25 03:52] VITALS: BP 122/77
[2016-11-25] MEDS: Ampicillin/Sulbactam Sod 3 GM in NS 110 ML IVPB SCH ×4 (05:26→23:23)
[2016-11-25 07:28] LABS: ANION GAP 14 (5-15); CALCIUM 8.8 mg/dL (8.6-10.2); CARBON DIOXIDE 26 mEQ/L (20-30); CHLORIDE 99 mEQ/L (98-107); CREATININE 0.8 mg/dL (0.7-1.2); HEMOLYSIS 1; POTASSIUM 3.8 mEQ/L (3.4-4.9); SODIUM 139 mEQ/L (135-145)
[2016-11-25 07:34] LABS: BASOPHILS % (AUTO) 0.6 % (0.0-2.0); EOSINOPHILS % (AUTO) 1.8 % (0.0-3.0); LYMPHOCYTES % (AUTO) 11.5 % (20.0-45.0); MEAN CORPUSCULAR HEMOGLOBIN 29.8 PG (27.0-31.0); MEAN CORPUSCULAR HGB CONC 32.6 G/DL (32.0-36.0); MEAN CORPUSCULAR VOLUME 91 FL (80-99); MEAN PLATELET VOLUME 6.2 FL (6.5-10.1); MONOCYTES % (AUTO) 7.7 % (1.0-10.0); NEUTROPHILS % (AUTO) 78.4 % (45.0-75.0); PLATELET COUNT 262 K/UL (150-450); RED BLOOD COUNT 4.62 M/UL (4.70-6.10); RED CELL DISTRIBUTION WIDTH 12.8 % (11.6-14.8); WHITE BLOOD COUNT 9.2 K/UL (4.8-10.8)
[2016-11-25 07:51] VITALS: BP 125/75
[2016-11-25] MEDS: Heparin 5000 units/ml inj SUBQ SCH ×2 (10:25→20:42)
[2016-11-25 11:43] VITALS: BP 120/79
[2016-11-25] MEDS: Doxycycline Hyclate 100 MG in D5W 110 ML IV SCH (12:54)
--- NOTE | 2016-11-25 14:39 | General Progress Note ---
Assessment/Plan Problem List: (1) Orchitis ICD Codes: N45.2 - Orchitis SNOMED: 650447142, 226808473 (2) Fever ICD Codes: R50.9 - Fever, unspecified SNOMED: 547133229 (3) Leukocytosis ICD Codes: D72.829 - Elevated white blood cell count, unspecified SNOMED: 144485323, 211896982 (4) Epididymo-orchitis, acute ICD Codes: N45.3 - Epididymo-orchitis SNOMED: 095672151 (5) Testicular discomfort ICD Codes: N50.819 - Testicular pain, unspecified SNOMED: 544809073 Status: stable, progressing, tolerating diet Assessment/Plan pt diet abx pain control uro f/u dc if clear Subjective Constitutional: Reports: weakness Allergies: Coded Allergies: No Known Allergies (Unverified , 11/22/16) All Systems: reviewed and negative except above Subjective sl testicular pain Objective Last 24 Hour Vital Signs Date Time Temp Pulse Resp B/P Pulse Ox O2 Delivery O2 Flow Rate FiO2 11/25/16 11:43 97.3 74 16 120/79 96 Room Air 11/25/16 07:51 97.3 75 20 125/75 95 Room Air 11/25/16 03:52 97.5 77 18 122/77 96 Room Air 11/24/16 23:47 97.5 74 20 112/71 96 Room Air 11/24/16 19:58 98.4 76 18 111/72 93 Room Air 11/24/16 15:59 99.5 75 18 113/72 96 Room Air Intake and Output 11/24/16 11/25/16 19:00 07:00 Intake Total 930 ml 330 ml Balance 930 ml 330 ml Intake Oral 600 ml IV Total 330 ml 330 ml # Voids 2 3 Laboratory Tests 11/25/16 06:20: White Blood Count 9.2, Red Blood Count 4.62L, Hemoglobin 13.8L, Hematocrit 42.2 , Mean Corpuscular Volume 91, Mean Corpuscular Hemoglobin 29.8, Mean Corpuscular Hemoglobin Concent 32.6, Red Cell Distribution Width 12.8, Platelet Count 262, Mean Platelet Volume 6.2L, Neutrophils (%) (Auto) 78.4H, Lymphocytes (%) (Auto) 11.5L, Monocytes (%) (Auto) 7.7, Eosinophils (%) (Auto) 1.8, Basophils (%) (Auto) 0.6, Sodium Level 139, Potassium Level 3.8, Chloride Level 99, Carbon Dioxide Level 26, Anion Gap 14, Blood Urea Nitrogen 11, Creatinine 0.8, Estimat Glomerular Filtration Rate , Glucose Level 121H, Calcium Level 8.8 Height (Feet): 5 Height (Inches): 7.00 Weight (Pounds): 180 General Appearance: alert EENT: normal ENT inspection Neck: normal alignment Cardiovascular: normal peripheral pulses, normal rate, regular rhythm Respiratory/Chest: chest wall non-tender, lungs clear, normal breath sounds Abdomen: normal bowel sounds, non tender, soft Extremities: normal inspection Edema: no edema noted Arm (L), no edema noted Arm (R), no edema noted Leg (L), no edema noted Leg (R), no edema noted Pedal (L), no edema noted Pedal (R), no edema noted Generalized Neurologic: responsive, motor weakness Skin: normal pigmentation, warm/dry Objective testicular swelling 4" by BROOKLYN GODFREY November 25, 2016 14:39
--- NOTE | 2016-11-25 15:50 | Infectious Diseases Prog Note ---
Assessment/Plan Problems: (1) Epididymo-orchitis, acute Assessment & Plan: improving on unasyn and doxycycline empiric treatment, await urine culture, and GC&CHLA screening, appreciate urology consult (2) Fever Assessment & Plan: improving, due to the above, await blood and urine culture , continue wide spectrum antibiotics (3) Leukocytosis Assessment & Plan: improving , rule out sepsis . on wide spectrum antibiotics, await blood culture (4) Testicular discomfort Assessment & Plan: with no evidence of torsion as per US, was evaluated by urology Subjective Constitutional: Reports: no symptoms HEENT: Reports: no symptoms Respiratory: Reports: no symptoms Cardiovascular: Reports: no symptoms Gastrointestinal/Abdominal: Reports: no symptoms Genitourinary: Reports: other - swallen left testicle, and pain Neurologic: Reports: no symptoms Psychiatric: Reports: no symptoms Skin: Reports: no symptoms Endocrine: Reports: no symptoms Allergies: Coded Allergies: No Known Allergies (Unverified , 11/22/16) Objective Vital Signs Last 24 Hour Vital Signs Date Time Temp Pulse Resp B/P Pulse Ox O2 Delivery O2 Flow Rate FiO2 11/25/16 11:43 97.3 74 16 120/79 96 Room Air 11/25/16 07:51 97.3 75 20 125/75 95 Room Air 11/25/16 03:52 97.5 77 18 122/77 96 Room Air 11/24/16 23:47 97.5 74 20 112/71 96 Room Air 11/24/16 19:58 98.4 76 18 111/72 93 Room Air 11/24/16 15:59 99.5 75 18 113/72 96 Room Air Height (Feet): 5 Height (Inches): 7.00 Weight (Pounds): 180 General Appearance: WD/WN, no acute distress HEENT: normocephalic, atraumatic, anicteric, mucous membranes moist Respiratory/Chest: chest wall non-tender, lungs clear, normal breath sounds, no respiratory distress, no accessory muscle use Cardiovascular: normal peripheral pulses, normal rate, regular rhythm, no gallop/murmur, no JVD Abdomen: normal bowel sounds, soft, non tender, no organomegaly, non distended , no mass Extremities: no cyanosis, no clubbing Skin: no rash, no lesions Microbiology Date/Time Source Procedure Growth Status 11/23/16 10:30 Blood Blood Culture - Preliminary NO GROWTH AFTER 24 HOURS Resulted 11/23/16 10:15 Blood Blood Culture - Preliminary NO GROWTH AFTER 24 HOURS Resulted 11/22/16 17:55 Blood Blood Culture - Preliminary NO GROWTH AFTER 48 HOURS Resulted 11/22/16 17:10 Blood Blood Culture - Preliminary NO GROWTH AFTER 48 HOURS Resulted Laboratory Tests Test 11/25/16 06:20 White Blood Count 9.2 K/UL (4.8-10.8) Red Blood Count 4.62 M/UL (4.70-6.10) L Hemoglobin 13.8 G/DL (14.2-18.0) L Hematocrit 42.2 % (42.0-52.0) Mean Corpuscular Volume 91 FL (80-99) Mean Corpuscular Hemoglobin 29.8 PG (27.0-31.0) Mean Corpuscular Hemoglobin Concent 32.6 G/DL (32.0-36.0) Red Cell Distribution Width 12.8 % (11.6-14.8) Platelet Count 262 K/UL (150-450) Mean Platelet Volume 6.2 FL (6.5-10.1) L Neutrophils (%) (Auto) 78.4 % (45.0-75.0) H Lymphocytes (%) (Auto) 11.5 % (20.0-45.0) L Monocytes (%) (Auto) 7.7 % (1.0-10.0) Eosinophils (%) (Auto) 1.8 % (0.0-3.0) Basophils (%) (Auto) 0.6 % (0.0-2.0) Sodium Level 139 mEQ/L (135-145) Potassium Level 3.8 mEQ/L (3.4-4.9) Chloride Level 99 mEQ/L (98-107) Carbon Dioxide Level 26 mEQ/L (20-30) Anion Gap 14 (5-15) Blood Urea Nitrogen 11 mg/dL (7-23) Creatinine 0.8 mg/dL (0.7-1.2) Estimat Glomerular Filtration Rate mL/min (>60) Glucose Level 121 mg/dL (74-106) H Calcium Level 8.8 mg/dL (8.6-10.2) Current Medications Medications (Trade) Dose Ordered Sig/Alivia Route PRN Reason Start Time Stop Time Status Last Admin Dose Admin Acetaminophen (Tylenol) 650 mg Q4H PRN ORAL fever 11/22/16 21:45 12/22/16 21:44 11/23/16 17:43 Albuterol/ Ipratropium (DuoNeb 0.5-3(2.5)mg/3ml) 3 ml EVERY 4 HOURS PRN HHN Shortness of Breath 11/22/16 21:45 11/27/16 21:44 Ampicillin Sodium/ Sulbactam Sodium 3 gm/Sodium Chloride 110 ml @ 220 mls/hr Q6HR IVPB 11/23/16 12:00 11/30/16 11:59 11/25/16 14:08 Cetylpyridinium Chloride (Cepacol) 1 lozenge Q2H PRN ANA SORE THROAT 11/23/16 15:00 12/23/16 14:59 11/23/16 17:43 Doxycycline Hyclate/Dextrose (Vibramycin/D5W) 110 ml @ 110 mls/hr Q12HR@0000,1200 IV 11/23/16 13:00 11/30/16 12:59 11/25/16 12:54 Heparin Sodium (Porcine) (Heparin 5000 units/ml) 5,000 units EVERY 12 HOURS SUBQ 11/23/16 09:00 12/23/16 08:59 11/25/16 10:25 Morphine Sulfate (Morphine Sulfate) 2 mg EVERY 4 HOURS PRN IVP Moderate Pain (Pain Scale 4-6) 11/22/16 21:45 11/29/16 21:44 11/25/16 03:31 Nitroglycerin 0.4 mg 0.4 mg Q5MINS PRN SL Prn Chest Pain 11/22/16 21:45 12/22/16 21:44 Ondansetron HCl (Zofran) 4 mg Q6H PRN IVP Nausea & Vomiting 11/22/16 21:45 12/22/16 21:44 Polyethylene Glycol (Miralax) 17 gm DAILYPRN PRN ORAL Constipation 11/22/16 21:45 12/22/16 21:44 Tamsulosin HCl (Flomax) 0.4 mg BEDTIME ORAL 11/23/16 21:00 12/23/16 20:59 11/24/16 20:30 Temazepam (Restoril) 15 mg HSPRN PRN ORAL Insomnia 11/22/16 21:45 11/29/16 21:44 Jennifer Herr M.D. November 25, 2016 15:50
[2016-11-25 15:55] VITALS: BP 131/81
[2016-11-25 20:00] VITALS: BP 125/77
[2016-11-25] MEDS: Tamsulosin 0.4mg cap ORAL SCH (20:41)
--- NOTE | 2016-11-25 22:34 | Pulmonology Progress Note ---
Subjective Allergies: Coded Allergies: No Known Allergies (Unverified , 11/22/16) Objective Last 24 Hour Vital Signs Date Time Temp Pulse Resp B/P Pulse Ox O2 Delivery O2 Flow Rate FiO2 11/25/16 20:00 97.2 62 20 125/77 95 Room Air 11/25/16 15:55 96.9 72 20 131/81 96 Room Air 11/25/16 11:43 97.3 74 16 120/79 96 Room Air 11/25/16 07:51 97.3 75 20 125/75 95 Room Air 11/25/16 03:52 97.5 77 18 122/77 96 Room Air 11/24/16 23:47 97.5 74 20 112/71 96 Room Air Intake and Output 11/24/16 11/25/16 19:00 07:00 Intake Total 930 ml 330 ml Balance 930 ml 330 ml Intake Oral 600 ml IV Total 330 ml 330 ml # Voids 2 3 Microbiology Date/Time Source Procedure Growth Status 11/23/16 10:30 Blood Blood Culture - Preliminary NO GROWTH AFTER 24 HOURS Resulted 11/23/16 10:15 Blood Blood Culture - Preliminary NO GROWTH AFTER 24 HOURS Resulted Laboratory Tests 11/25/16 06:20: White Blood Count 9.2, Red Blood Count 4.62L, Hemoglobin 13.8L, Hematocrit 42.2 , Mean Corpuscular Volume 91, Mean Corpuscular Hemoglobin 29.8, Mean Corpuscular Hemoglobin Concent 32.6, Red Cell Distribution Width 12.8, Platelet Count 262, Mean Platelet Volume 6.2L, Neutrophils (%) (Auto) 78.4H, Lymphocytes (%) (Auto) 11.5L, Monocytes (%) (Auto) 7.7, Eosinophils (%) (Auto) 1.8, Basophils (%) (Auto) 0.6, Sodium Level 139, Potassium Level 3.8, Chloride Level 99, Carbon Dioxide Level 26, Anion Gap 14, Blood Urea Nitrogen 11, Creatinine 0.8, Estimat Glomerular Filtration Rate , Glucose Level 121H, Calcium Level 8.8 Current Medications Medications (Trade) Dose Ordered Sig/Alivia Route PRN Reason Start Time Stop Time Status Last Admin Dose Admin Acetaminophen (Tylenol) 650 mg Q4H PRN ORAL fever 11/22/16 21:45 12/22/16 21:44 11/23/16 17:43 Albuterol/ Ipratropium (DuoNeb 0.5-3(2.5)mg/3ml) 3 ml EVERY 4 HOURS PRN HHN Shortness of Breath 11/22/16 21:45 11/27/16 21:44 Ampicillin Sodium/ Sulbactam Sodium 3 gm/Sodium Chloride 110 ml @ 220 mls/hr Q6HR IVPB 11/23/16 12:00 11/30/16 11:59 11/25/16 18:08 Cetylpyridinium Chloride (Cepacol) 1 lozenge Q2H PRN ANA SORE THROAT 11/23/16 15:00 12/23/16 14:59 11/23/16 17:43 Doxycycline Hyclate/Dextrose (Vibramycin/D5W) 110 ml @ 110 mls/hr Q12HR@0000,1200 IV 11/23/16 13:00 11/30/16 12:59 11/25/16 12:54 Heparin Sodium (Porcine) (Heparin 5000 units/ml) 5,000 units EVERY 12 HOURS SUBQ 11/23/16 09:00 12/23/16 08:59 11/25/16 20:42 Morphine Sulfate (Morphine Sulfate) 2 mg EVERY 4 HOURS PRN IVP Moderate Pain (Pain Scale 4-6) 11/22/16 21:45 11/29/16 21:44 11/25/16 03:31 Nitroglycerin 0.4 mg 0.4 mg Q5MINS PRN SL Prn Chest Pain 11/22/16 21:45 12/22/16 21:44 Ondansetron HCl (Zofran) 4 mg Q6H PRN IVP Nausea & Vomiting 11/22/16 21:45 12/22/16 21:44 Polyethylene Glycol (Miralax) 17 gm DAILYPRN PRN ORAL Constipation 11/22/16 21:45 12/22/16 21:44 Tamsulosin HCl (Flomax) 0.4 mg BEDTIME ORAL 11/23/16 21:00 12/23/16 20:59 11/25/16 20:41 Temazepam (Restoril) 15 mg HSPRN PRN ORAL Insomnia 11/22/16 21:45 11/29/16 21:44 KELVIN MEJÍA November 25, 2016 22:34
[2016-11-26] VITALS: BP 123/74
[2016-11-26] MEDS: Doxycycline Hyclate 100 MG in D5W 110 ML IV SCH ×2 (00:02→12:00)
[2016-11-26 03:51] VITALS: BP 124/79
[2016-11-26] MEDS: Ampicillin/Sulbactam Sod 3 GM in NS 110 ML IVPB SCH ×2 (05:31→12:00)
[2016-11-26 07:38] VITALS: BP 130/77
[2016-11-26] MEDS: Heparin 5000 units/ml inj SUBQ SCH (09:17)
[2016-11-26 11:33] VITALS: BP 118/70
--- NOTE | 2016-11-26 14:55 | General Progress Note ---
Assessment/Plan Problem List: (1) Orchitis ICD Codes: N45.2 - Orchitis SNOMED: 928035418, 039850012 (2) Fever ICD Codes: R50.9 - Fever, unspecified SNOMED: 126499264 (3) Leukocytosis ICD Codes: D72.829 - Elevated white blood cell count, unspecified SNOMED: 894119540, 825330151 (4) Epididymo-orchitis, acute ICD Codes: N45.3 - Epididymo-orchitis SNOMED: 228768021 (5) Testicular discomfort ICD Codes: N50.819 - Testicular pain, unspecified SNOMED: 628347649 Status: stable, progressing, tolerating diet Assessment/Plan pt diet abx pain control uro f/u dc if clear Subjective Constitutional: Reports: weakness Allergies: Coded Allergies: No Known Allergies (Unverified , 11/22/16) All Systems: reviewed and negative except above Subjective sl testicular pain Objective Last 24 Hour Vital Signs Date Time Temp Pulse Resp B/P Pulse Ox O2 Delivery O2 Flow Rate FiO2 11/26/16 11:33 97.7 63 14 118/70 95 Room Air 11/26/16 07:38 97.0 80 14 130/77 97 Room Air 11/26/16 03:51 96.8 64 18 124/79 95 Room Air 11/26/16 00:00 97.5 64 20 123/74 97 Room Air 11/25/16 20:00 97.2 62 20 125/77 95 Room Air 11/25/16 15:55 96.9 72 20 131/81 96 Room Air Intake and Output 11/25/16 11/26/16 19:00 07:00 Intake Total 925 ml 330 ml Balance 925 ml 330 ml Intake Oral 925 ml IV Total 330 ml # Voids 3 2 Height (Feet): 5 Height (Inches): 7.00 Weight (Pounds): 180 General Appearance: alert EENT: normal ENT inspection Neck: normal alignment Cardiovascular: normal peripheral pulses, normal rate, regular rhythm Respiratory/Chest: chest wall non-tender, lungs clear, normal breath sounds Abdomen: normal bowel sounds, non tender, soft Extremities: normal inspection Edema: no edema noted Arm (L), no edema noted Arm (R), no edema noted Leg (L), no edema noted Leg (R), no edema noted Pedal (L), no edema noted Pedal (R), no edema noted Generalized Neurologic: responsive, motor weakness Skin: normal pigmentation, warm/dry Objective testicular swelling 4" by 4 BROOKLYN CHAIDEZ November 26, 2016 14:55
--- NOTE | 2016-11-26 22:47 | Pulmonology Progress Note ---
Subjective Allergies: Coded Allergies: No Known Allergies (Unverified , 11/22/16) Objective Last 24 Hour Vital Signs Date Time Temp Pulse Resp B/P Pulse Ox O2 Delivery O2 Flow Rate FiO2 11/26/16 11:33 97.7 63 14 118/70 95 Room Air 11/26/16 07:38 97.0 80 14 130/77 97 Room Air 11/26/16 03:51 96.8 64 18 124/79 95 Room Air 11/26/16 00:00 97.5 64 20 123/74 97 Room Air Intake and Output 11/25/16 11/26/16 19:00 07:00 Intake Total 925 ml 330 ml Balance 925 ml 330 ml Intake Oral 925 ml IV Total 330 ml # Voids 3 2 KELVIN MEJÍA November 26, 2016 22:47
--- NOTE | 2016-11-27 14:18 | Discharge Summary ---
Discharge Summary Hospital Course Date of Admission November 22, 2016 at 20:46 Date of Discharge November 26, 2016 at 14:38 Admitting Diagnosis * acute febrile illness, scrotal cellulitis HPI Joshnoemy Palacios is a 75 year old male who was admitted on November 22, 2016 at 20:46 for Acute Febbrile Illness; Scrotal Cellulitis Hospital Course [id number] Discharge Discharge Disposition Patient was discharged to Home with Home Health(06) Discharge Diagnoses: Sophy Mireles NP November 27, 2016 14:18
--- NOTE | 2016-11-28 04:28 | Discharge Summary 2 SIG ---
DATE OF ADMISSION: 11/22/2016 DATE OF DISCHARGE: 11/26/2016 CONSULTANTS: 1. Ian Panchal M.D. 2. Jennifer Herr M.D. 3. Sabino Jenkins M.D. BRIEF HOSPITAL COURSE: The patient is a 75-year-old male, who lives at home presented with three day increase in testicular swelling and pain. On evaluation at ED, the patient had fever and labs showed leukocytosis. CT scan of the abdomen and pelvis showed abnormal scrotum with diverticulosis of the colon with no evidence of diverticulitis and prostatic hypertrophy. Dr. Jenkins was consulted. Physical exam revealed an enlarged testicle, which is tender but decreased in sensitivity. There was no evidence of hydrocele, tumour, hernia, torsion or other abnormality. Testicular ultrasound showed mild enlargement of the left testis and epididymis suggesting epididymo-orchitis and a small hydrocele and varicocele. He was given Unasyn and doxycycline. Chlamydia screen was negative. Blood culture done did not isolate any growth. Leukocytosis resolved. The patient was discharged home with home health. Antibiotic p.o. medications was delivered to the patient by [facility] prior to discharge. FINAL DIAGNOSES: 1. Acute epididymo-orchitis. 2. Testicular discomfort with no evidence of torsion on ultrasound. Elfego Bansal D.O. I have been assigned to dictate discharge summary on this account and I was not involved in the patient's management. Sophy Mireles N.P. DR: Kamari JOB#: [id number] CC: HETAL
== END 2016-11-26 14:38 | disposition home health service (06) | DRG 872 ==
LOC: EMR 18:15 → EDBEDREQ 20:26 → 4W 20:46
DX: A41.9 Sepsis, unspecified organism (principal); I10 Essential (primary) hypertension; N45.3 Epididymo-orchitis; N40.0 Benign prostatic hyperplasia without lower urinary tract symptoms; N50.819 Testicular pain, unspecified; K57.90 Diverticulosis of intestine, part unspecified, without perforation or abscess without bleeding
CPT/HCPCS: 36415; 71010; 74177; 76870; 80048; 80053; 81003; 83605; 83690; 85007; 85025; 85610; 85730; 86850; 86900; 86901; 87040; 87491; J3490